=== PATIENT | female | born 1980 | race Caucasian/White ===

== ENCOUNTER 2018-09-22 09:58 | Outpatient (CLI) | payer OTHER ==
[2018-09-22] MEDS ORDERED: LEVO125T5 PO (10:26)
== END 2018-09-22 23:59 | disposition home or self-care (01) ==
LOC: STAR 09:58
PROVIDERS: ATTEND Specialist
DX: Z02.9 Encounter for administrative examinations, unspecified (principal)

== ENCOUNTER 2018-09-30 12:01 | Day surgery (SDC) | payer OTHER ==
[~2018-09-30] VITALS: Ht 167.6 cm; Wt 133.0 kg
[~2018-09-30 12:01] MED LIST: BUPIVACAINE/PF 0.25% ONE; EPINEPHRINE 1 MG/ML, 1ML ONE; LEVO125T5 PO
[2018-09-30] MEDS ORDERED: FENTANYL PF 250 MCG/5ML ONE (12:11)
[2018-09-30] MEDS ORDERED: MIDAZOLAM 1 MG/ML, 2ML ONE (12:11)
[2018-09-30] MEDS ORDERED: GLYCOPYRROLATE 0.2MG/1ML, 5ML ONE (12:16)
[2018-09-30] MEDS ORDERED: CEFAZOLIN 1,000 MG ONE ×2 (12:16→14:04)
[2018-09-30] MEDS ORDERED: PROPOFOL 10 MG/ML, 20ML ONE (12:16)
[2018-09-30] MEDS ORDERED: NEOSTIGMINE 1 MG/ML, 10ML ONE (12:16)
[2018-09-30] MEDS ORDERED: DEXAMETHASONE 4 MG/ML, 1ML ONE (12:16)
[2018-09-30] MEDS ORDERED: ROCURONIUM 10MG/ML,5ML ONE (12:16)
[2018-09-30] MEDS ORDERED: ONDANSETRON 2MG/ML, 2ML ONE ×2 (12:16→15:23)
[2018-09-30] MEDS ORDERED: GABAPENTIN 300 MG CAPSULE PO STA (12:17)
[2018-09-30] MEDS ORDERED: ACETAMINOPHEN 500 MG TABLET PO STA (12:17)
[2018-09-30] MEDS ORDERED: SCOPOLAMINE PATCH, 1.5MG PATCH.TD72 TD STA (12:17)
[2018-09-30 12:20] VITALS: BP 139/84
[2018-09-30] MEDS ORDERED: LACTATED RINGERS 1,000 ML IV SCH (12:20)
[2018-09-30] MEDS ORDERED: LIDOCAINE-MPF 1%, 2ML INFIL ONE (12:30)
[2018-09-30 13:01] LABS: HCG UR SG 1.029 (1.003-1.030)
[2018-09-30] MEDS ORDERED: HYDROmorphone 2 MG/ML, 1ML IVPush PRN (14:00)
[2018-09-30] MEDS ORDERED: FENTANYL PF 100 MCG/2ML IV PRN (14:00)
[2018-09-30] MEDS ORDERED: LABETALOL 5MG/ML, 20ML IV PRN (14:00)
[2018-09-30] MEDS ORDERED: PROMETHAZINE 25 MG/ML, 1ML IM PRN ×2 (14:00)
[2018-09-30] MEDS ORDERED: HALOPERIDOL 5 MG/ML IV PRN (14:00)
[2018-09-30] MEDS ORDERED: hydrALAzine 20 MG/ML, 1ML IV PRN (14:00)
[2018-09-30] MEDS ORDERED: METHYLENE BLUE 50 MG/10 ML AMP ONE (14:00)
[2018-09-30] MEDS ORDERED: PROMETHAZINE 25 MG/ML, 1ML IV PRN (14:00)
[2018-09-30] MEDS ORDERED: MORPHINE SULFATE 4 MG/ML, 1ML IVPush PRN (14:00)
[2018-09-30] MEDS ORDERED: OXYcodone 5 MG/5 ML ORAL.SOL UDC PO PRN (14:00)
[2018-09-30] MEDS ORDERED: ONDANSETRON ODT 8 MG PO PRN (14:00)
[2018-09-30] MEDS ORDERED: ONDANSETRON 2MG/ML, 2ML IV PRN (14:00)
[2018-09-30] MEDS ORDERED: PROMETHAZINE 12.5 MG SUPP PR PRN (14:00)
[2018-09-30] MEDS ORDERED: MEPERIDINE/PF 25MG/0.5ML IVPush PRN (14:00)
[2018-09-30] MEDS ORDERED: PROMETHAZINE 25 MG SUPP PR PRN (14:00)
[2018-09-30] MEDS ORDERED: SUGAMMADEX 200 MG/2 ML IVPush ONE ×2 (14:48)
[2018-09-30] MEDS ORDERED: HALOPERIDOL 5 MG/ML ONE (16:00)
== END 2018-09-30 17:20 | disposition home or self-care (01) ==
LOC: OUT 12:01
PROVIDERS: ATTEND Specialist
DX: N91.5 Oligomenorrhea, unspecified (principal); E03.9 Hypothyroidism, unspecified; Z98.890 Other specified postprocedural states; Z88.8 Allergy status to other drugs, medicaments and biological substances
CPT/HCPCS: 49320; 81025; J0171; J0690; J1100; J1630; J2250; J2405; J2704; J2710; J3010; J3490; J7120; Q9968

== ENCOUNTER → 2018-10-09 | Outpatient (CLI) | payer OTHER ==
[~2018-10-09] MED LIST changes: -BUPIVACAINE/PF 0.25% ONE; -EPINEPHRINE 1 MG/ML, 1ML ONE
== END | disposition home or self-care (01) ==
LOC: RAD 14:10
PROVIDERS: ATTEND Specialist
DX: Z02.9 Encounter for administrative examinations, unspecified (principal)

== ENCOUNTER 2018-11-06 13:58 | Outpatient (CLI) | payer OTHER | END 2018-11-06 23:59 | disposition home or self-care (01) | LOC: RAD 13:58 | PROVIDERS: ATTEND Specialist | DX: N70.11 Chronic salpingitis (principal) | CPT/HCPCS: 58340; 74740 ==